=== PATIENT | male | born 2000 | race Caucasian/White ===

== ENCOUNTER → 2023-07-13 | Outpatient (REF) | payer OTHER, SELFPAY ==
[2023-07-13 02:09] VITALS: BP 114/74; PULSE 74; RESP 18; TEMP 36.6; O2SAT 99; BMI 31.0
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
[2023-07-13 03:53] LABS: HIV - WCH Non-Reactive (Nonreactive); Hepatitis B Surface Antibody Non-Reactive; Hepatitis B Surface Antigen Non-Reactive (Nonreactive); Hepatitis C Antibody Non-Reactive (Nonreactive)
== END ==
LOC: EDREF 02:51
PROVIDERS: Emergency Provider Emergency Medicine; Visit Provider Emergency Medicine
DX: S40.812A Abrasion of left upper arm, initial encounter (principal)
CPT/HCPCS: 86703; 86706; 86803; 87340; 99282

== ENCOUNTER 2023-12-30 01:14 | Emergency (ER) | payer OTHER, SELFPAY ==
[2023-12-30 01:14] VITALS: BP 191/99; PULSE 93; RESP 18; TEMP 36.1; O2SAT 96
--- NOTE | 2023-12-30 01:41 | RAD_ITS ---
INDICATION: injury felt left shoulder pop, pt states he felt shoulder pop back in EXAMINATION/TECHNIQUE: X-RAY - LEFT XR Shoulder Min 2 Views 4 VIEWS COMPARISON: No relevant prior comparison study available FINDINGS: BONES: No fracture demonstrated. JOINTS: No dislocation. SOFT TISSUES: Unremarkable. RAD/Shoulder min 2 Views IMPRESSION: No evidence of fracture. Electronically Signed: Pam Ochoa MD at 2:31 EDT ,
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
--- OUTSIDE RECORDS SUMMARY | 2023-12-30 02:00 | XMS RPT_ITS | CCD ---
Author Organization [facility] Care Team Providers Care Manager Trade Name Role Phone WALLY FUENTES Primary Care Physician [phone] WALLY FUENTES Attending Unavailabl e WALLY FUENTES Primary Care Unavailabl e Allergies Allergy Classification Reported Allergen(s) Allergy Type Date of Onset Reaction(s) Facility (1 source) tetanus toxoid vaccine, inactivated; Translations: [tetanus toxoid] Drug Allergy it could kill me [facility] [place] Medications Current Medications Medication Drug Class(es) Dates Sig (Normalized) Sig (Original) acetaminophen 500 mg oral tablet (1 source) Start: 08-02-2022 acetaminophen 500 mg oral tablet Dose : 1,000 mg = 2 tab(s), Oral, TID, PRN pain or fever, 0 Refill(s) Start Date: 08/02/22 Status: Ordered Problems Problem Classification Problem Date Documented Da te Episodic/Chronic Nonmalignant breast conditions (1 source) Gynecomastia 08-02-2022 Episodic Unclassified (1 source) Patient encounter status 08-02-2022 Results Test Name Value Interpretation Reference Range Facility GLUon 08-21-2023 Glucose [Mass/Vol] 87 mg/dL Normal 70-105 [facility] ([place]) Comment on above: Performed By: #### L IPID, GLU #### [facility] [address] [place], [place] [address] LABORATORYOrdered By: Onesimo Negrete on 08-21-2023 Cholesterol [Mass/Vol] 219 mg/dL High 0 - 200 mg/dL AO ADM SS Comment on above: Interpretive Data: C holesterol Reference Interval: Less than 200 Desirable 200-239 Borderline high risk 240 and above High risk Cholesterol in HDL [Mass/Vol] 70 mg/dL High 40 - 60 mg/dL AO ADM SS Cholesterol in LDL [Mass/Vol] 136 mg/dL High 0 - 130 mg/dL AO ADM SS Triglyceride [Mass/Vol] 63 mg/dL Normal 0 - 150 mg/d L AO ADM SS Comment on above: Interpretive Data: T riglyceride Reference Interval: Less than 150 Normal 150-199 Borderline high risk 200-499 High risk 500 or higher Very high risk LABORATORYOrdered By: SYSTEM SYSTEM on 08-21-2023 Glucose [Mass/Vol] 87 mg/dL Normal 70 - 105 mg/dL AO ADM SS LIPIDon 08-21-2023 Cholesterol [Mass/Vol] 219 mg/dL High 0-200 [facility] ([place]) Comment on above: Result Comment: Chol esterol Reference Interval: Less than 200 Desirable 200-239 Borderline high risk 240 and above High risk Performed By: #### L IPID, GLU #### [address] [address] Cholesterol in HDL [Mass/Vol] 70 mg/dL High 40-60 [facility] ([place]) Comment on above: Performed By: #### L IPID, GLU #### [address] [address] Cholesterol in LDL [Mass/Vol] 136 mg/dL High 0-130 [facility] ([place]) Comment on above: Performed By: #### L IPID, GLU #### [address] [address] Triglyceride [Mass/Vol] 63 mg/dL Normal 0-150 [facility] ([place]) Comment on above: Result Comment: Trig lyceride Reference Interval: Less than 150 Normal 150-199 Borderline high risk 200-499 High risk 500 or higher Very high risk Performed By: #### L IPID, GLU #### [address] [address] Encounters Encounter Date Encounter Type Care Provider Facility Start: 08-21-2023 End: 08-21-2023 ambulatory WALLY ORR Facility:B Start: 08-21-2023 End: 08-21-2023 Patient encounter procedure [facility] Procedures Date Procedure Procedure Detail Performing Clinician Reduction mammoplasty Breast reduction RY 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[employer] Immunizations Immunization Date Immunization Notes Care Provider Cici burrows 10-12-2016 meningococcal polysaccharide (groups A, C, Y and W-135) diphtheria toxoid conjugate vaccine (MCV4P) WALLY MARTIN [employer] [facility] 10-16-2004 diphtheria, tetanus toxoids and acellular pertussis vaccine, unspecified formulation WALLY MARTIN [facility] 10-16-2004 measles/mumps/rubell a virus vaccine WALLY MARTIN [facility] 10-16-2004 poliovirus vaccine, inactivated WALLY MARTIN [facility] 01-08-2001 diphtheria, tetanus toxoids and acellular pertussis vaccine, unspecified formulation WALLY MARTIN [facility] 01-08-2001 haemophilus influenz ae type b vaccine, PRP-T conjugate WALLY MARTIN [facility] 09-04-2000 measles/mumps/rubell a virus vaccine WALLY MARTIN [employer] [facility] 09-04-2000 varicella virus vaccine WALLY MARTIN [employer] [facility] 01-14-2000 hepatitis B pediatri c vaccine WALLY MARTIN [employer] [facility] 1999 diphtheria, tetanus toxoids and acellular pertussis vaccine, unspecified formulation WALLY MARTIN [facility] 1999 haemophilus influenz ae type b vaccine, PRP-T conjugate 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[facility] 1999 poliovirus vaccine, inactivated 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[employer] [facility] 1999 diphtheria, tetanus toxoids and acellular pertussis vaccine, unspecified formulation 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[facility] 1999 haemophilus influenz ae type b vaccine, PRP-T conjugate 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[facility] 1999 poliovirus vaccine, inactivated 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[facility] 1999 diphtheria, tetanus toxoids and acellular pertussis vaccine, unspecified formulation 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[facility] 1999 haemophilus influenz ae type b vaccine, PRP-T conjugate 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[facility] 1999 hepatitis B pediatri c vaccine 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[facility] 1999 poliovirus vaccine, inactivated 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[facility] 1999 hepatitis B pediatri c vaccine 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[facility] Payers Date Payer Category Payer Private Health Insurance [id number] 1999 Unknown [id number] Social History Date Type Detail Facility Start: 08-02-2022 Tobacco smoking status Never s moked tobacco (finding) [facility] Evaluation + Plan note Note Date & Type Note Facility Evaluation + Plan note No data available for this section [facility] [place] [facility] Hospital Discharge instructions Note Date & Type Note Facility Hospital Discharge instructions No data available for this section [facility] Progress note Note Date & Type Note Facility Progress note No data available for this section [facility] Summary Purpose Family History No Family History Records Found Advance Directives No Advanced Directives Records Found Additional Source Comments Patient Care team informatio n (unrecognized section and content) Care Team Personnel Name: WALLY MARTIN APRN-BENNIE Position: P4 [employer] Member Role: Primary Care Physician Address: Address: [address] [place] [address]- [place] Care Team Related Persons Name: SIVAKUMAR NORWOOD (unrecognized sect ion and content) No Status Records Found INFORMATION SOURCE (unrecogn ized section and content) DATE CREATED AUTHOR 08/22/2023 [facility] ([place]) FOR RECORDS PERTAINING TO PATIENTS WHO ARE OR HAVE BEEN ENROLLED IN A CHEMICAL DEPENDENCY/SUBSTANCEABUSE PROGRAM, SOME INFORMATION MAY BE OMITTED. This clinical summary was aggregated from multiple sources. Caution should be exercised in using it in the provision of clinical care. This summary normalizes information from multiple sources, and as a consequence, information in this document may materially change the coding, format and clinical context of patient data. In addition, data may be omitted in some cases. CLINICAL DECISIONS SHOULD BE BASED ON THE PRIMARY CLINICAL RECORDS. [facility] [employer] [facility]. provides no warranty or guarantee of the accuracy or completeness of information in this document.
[2023-12-30 02:20] VITALS: BMI 32.5
[2023-12-30 02:21] VITALS: BP 148/97; PULSE 74; RESP 16; TEMP 36.7; O2SAT 99
== END 2023-12-30 02:22 | disposition home or self-care (01) ==
PROVIDERS: Emergency Provider Emergency Medicine; PCP Nurse Practitioner Primary Care; Visit Provider Emergency Medicine
DX: S43.002A Unspecified subluxation of left shoulder joint, initial encounter (principal); Y35.891A Legal intervention involving other specified means, law enforcement official injured, initial encounter; Y99.0 Civilian activity done for income or pay; J45.909 Unspecified asthma, uncomplicated
CPT/HCPCS: 73030; 99283